=== PATIENT | male | born 1965 | race Two or more races ===

== ENCOUNTER 2024-06-26 06:21 | Day surgery (SDC) | payer MEDICARE, MEDICAID ==
[~2024-06-26] VITALS: Ht 170.2 cm; Wt 89.8 kg
[~2024-06-26 06:21] MED LIST: ATOR80TA PO; FENO160T PO; PANT40TA2 PO; TRAM50TA2 PO; ceFAZolin 2 GM/D5W100ml 100 ML IV ONE
[2024-06-26] MEDS ORDERED: EPINEPHrine HCL 1 MG/1 ML AMP ONE (07:01)
[2024-06-26 09:09] VITALS: PULSE 74; RESP 14; TEMP 97.6; O2SAT 96
[2024-06-26] MEDS ORDERED: MEPERIDINE HCL (25 MG/ML) 1ML VIAL IV PRN (09:15)
[2024-06-26] MEDS ORDERED: HYDROmorphone HCL 2 MG/ML VL/or syr IV PRN (09:15)
[2024-06-26] MEDS ORDERED: ONDANSETRON HCL 4 MG/2 ML VIAL IV ONE (09:15)
--- NOTE | 2024-06-26 09:21 | DVHOP2 ---
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 These include but are not limited to complications of anesthesia, postoperative infection, incomplete relief of symptoms, recurrence of symptoms, damage to blood vessels, nerves and tendons, deep venous thrombosis, pulmonary embolism and possible need for repeat surgery in the future. Complications: None Estimated Blood Loss: Less than 5 mL Indications for Surgery: The patient is a 59-year-old male who presented to the clinic with a history of chronic shoulder pain. Clinical and radiological evaluation was suspicious of some tendinitis, partial rotator cuff tear. Subacromial impingement was also considered as diagnosis. Nonoperative and operative management options were discussed. Surgery in the form of shoulder arthroscopy with possible rotator cuff repair, subacromial decompression, other indicated procedures such as biceps tenodesis were discussed with him. Pros and cons were discussed. Benefits, risks and treatment alternatives were discussed. He decided to proceed with the surgical option. Name of Procedure Performed Right shoulder arthroscopy with biceps tenodesis, subacromial decompression and distal clavicle excision Procedure Details Procedure Details: The patient was identified in the preoperative holding area and the surgical site was marked. The consent was verified. The patient was brought into the operating room and placed supine on the operating table. General anesthesia was administered. The beachchair attachment was applied to the operating table. The patient was now brought up into the beachchair position, approximately 60 degrees. The arm was prepped and draped in the usual sterile manner. The arm was placed in the attachment for the spyder, mechanical arm turcios. The extremity was examined under anesthesia and was found to have good passive range of motion. A timeout was performed to confirm the identity of the patient, the nature of surgery, the site of surgery, the available of implants and x-rays and allergies to medications A standard posterior portal established. A 30 degree scope was inserted A standard anterior portal was established. A probe was inserted and the findings are as follows: 1. Intact subscapularis tendon 2. Significant fraying and tear of the superior labrum 3. Circumferential degenerative labral tear 4. 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 Significant synovitis 6. Normal intra-articular and bursal sided rotator cuff tendon Significant chondromalacia was noted. Grade 4 chondromalacia of the glenoid was noted over a small area central and posterior. Microfracture was performed along with chondroplasty. A special shaver attachment was used for this purpose. 4-5 holes were drilled. There was grade 2 chondromalacia on the inferior humeral head as well. This was not accessible to the microfracture. This was a small area as well. Because of the significant superior labral tear, I decided to do a biceps tenodesis as this may be a pain source generator. Two fiber tapes were passed through the biceps tendon. A punch was used at the lesser tuberosity. The sutures were now inserted through the bioabsorbable anchor. A punch was used to create a hole. The anchor was now inserted along with the two fiber tapes for excellent biceps tenodesis. Good tension was noted. The biceps tendon was released from the superior labrum before the final tightening. Biceps tenodesis was completed. Subacromial decompression was completed with acromioplasty to remove approximately 5 mm of acromion as it was downsloping in nature. The rotator cuff was thoroughly probed and was noted to be grossly intact. It was noted that the distal clavicle was severely arthritic. I did a Jane procedure as well. 5-7 mm of the distal clavicle was removed. Care was taken to remove only the damaged articular portion. The superior AC ligaments were left intact. Irrigation was given and the skin portals were closed with 2-0 nylon Sterile dressing was applied. Local anesthetic was given. Shoulder immobilizer was applied. There was a technical malfunction with taking the arthroscopic pictures and once it was resolved, the photos were taken after the procedure documenting the steps that were done. The operating room management staff was educated and they will have in-house education with bio electrical engineering manager to avoid this from happening again. Disposition: Good, the patient was extubated and taken to recovery without any complications. The patient was examined in the recovery and had intact neurovascular exam Plan: To remain in the brace. Follow-up in 1 week. Condition Good Disposition Home VAZQUEZ VASQUEZ MD Jun 26, 2024 09:21
[2024-06-26] MEDS: ACETAMINOPHEN IV 1000 MG/100ML (10MG/ML) IV PRN (09:52)
[2024-06-26 10:10] VITALS: BP 154/88; PULSE 77; RESP 16; O2SAT 96
== END 2024-06-26 10:30 | disposition home or self-care (01) ==
LOC: SUR 06:21
PROVIDERS: ATTEND Orthopaedic Surgery Sports Medicine
DX: M75.101 Unspecified rotator cuff tear or rupture of right shoulder, not specified as traumatic (principal); S43.431A Superior glenoid labrum lesion of right shoulder, initial encounter; M19.011 Primary osteoarthritis, right shoulder; M25.811 Other specified joint disorders, right shoulder; M24.111 Other articular cartilage disorders, right shoulder; M65.811 Other synovitis and tenosynovitis, right shoulder; M94.211 Chondromalacia, right shoulder; G89.18 Other acute postprocedural pain; E78.5 Hyperlipidemia, unspecified; K21.9 Gastro-esophageal reflux disease without esophagitis; Z79.891 Long term (current) use of opiate analgesic; Z79.899 Other long term (current) drug therapy; Z98.890 Other specified postprocedural states; Z96.653 Presence of artificial knee joint, bilateral; X58.XXXA Exposure to other specified factors, initial encounter; Y93.89 Activity, other specified; Y92.89 Other specified places as the place of occurrence of the external cause; Y99.8 Other external cause status
CPT/HCPCS: 29824; 29826; 29828; 64415; C1713; J0171; A4565; J0131